=== PATIENT | male | born 2000 | race Caucasian/White ===

== ENCOUNTER 2025-05-02 19:24 | Emergency (ER) | payer BC, SELFPAY ==
[2025-05-02] VITALS (17 sets, daily range): BP systolic 143–177; BP diastolic 88–119; PULSE 75–103; TEMP 37.4; O2SAT 94–100; BMI 48.8
--- NOTE | 2025-05-02 19:44 | CT_ITS ---
The [address] [address] Patient Name: PELON BRONSON MRN: [id number] date: 2000 Sex: M Assigned Patient Location: ER Current Patient Location: ER Accession/Order Number: [id number] Exam Date: 05/02/2025 19:57 Report Date: 05/02/2025 21:14 At the request of: RHONDA CAREY MD Procedure: CT abdomen pelvis w con CT ABDOMEN AND PELVIS WITH INTRAVENOUS CONTRAST: CLINICAL HISTORY: RUQ abd pain COMPARISON: None TECHNIQUE: Spiral images were obtained through the abdomen and pelvis following the administration of intravenous contrast. This CT exam was performed using one or more following dose reduction techniques: Automated exposure control, adjustment of the mA and/or kV according to patient size, or use of iterative reconstruction technique. FINDINGS: Lung Bases: [No focal opacity within the visualized lungs.] Organs:Portions of the liver and spleen excluded from the of the [id number]. Fatty infiltration. Spleen, adrenals, kidneys, pancreas unremarkable. Gallbladder unremarkable.[ GI: Mild retained stool. No bowel obstruction. Appendix is not visualized. There are no CT findings acute appendicitis.[ Pelvis: Bladder prostate unremarkable. Peritoneum/Retroperitoneum:No free air or free fluid. Aorta unremarkable.[ Abd wall/Bones:No suspicious osseous lesion.[ CT/CT abdomen pelvis w con IMPRESSION: Negative acute inflammatory process or bowel obstruction. Fatty infiltration of the liver Impression dictated by: Kyaw Menendez M.D. 05/02/2025 9:14 PM Dictation Location: [employer] Electronically authenticated by: [id number] Y Date: 05/02/2025 21:14
--- NOTE | 2025-05-02 19:45 | ED_ITS ---
HPI - Abdominal Pain General Chief Complaint: Abdominal Pain Stated Complaint: ABDOMINAL PAIN Time Seen by Provider: 05/02/25 19:40 Source: patient Mode of arrival: walk-in Limitations: no limitations History of Present Illness HPI narrative: This 24-year-old male presents for evaluation of right upper quadrant abdominal pain with nausea and vomiting. The symptoms started after eating ribs for lunch earlier today. He states the pain is in the right upper quadrant and wraps around his back. It causes him to be short of breath. He does not drink or smoke. He has had his appendix out in the past. He has not had any diarrhea. He does have a history of kidney stones and a history of hypertension but states he was taken off of his blood pressure medications. He is not on any weight loss medications currently. Related Data Allergies Allergy/AdvReac Type Severity Reaction Status Date / Time amoxicillin AdvReac Intermediate Vomiting Verified 05/02/25 19:32 Review of Systems ROS Status of ROS 10 or more systems reviewed and unremark able except as noted in history and below PFSH PFSH Social History Little interest or pleasure in doing things: not at all Feeling down, depressed, or hopeless: not at all Exam Narrative Exam Narrative: Vital signs and Nursing Notes reviewed: Patient's temperature is elevated 99.3, pulse was elevated at 101, blood pressure is elevated at 175/119, he is not hypoxic with pulse ox of 100% on room air General: Awake, alert, oriented, uncomfortable appearing diaphoretic obese adult male, no respiratory distress, no active vomiting HEENT: Normocephalic atraumatic, mucous membranes are moist and pink, eyes are clear, normal conjunctiva, no scleral icterus, vision is grossly intact Neck: Supple, no meningeal signs, no anterior or posterior cervical lymphad enopathy Chest: Lungs are clear to auscultation with good air entry, there is no wheezing rhonchi or rales appreciated no accessory muscle use, patient is speaking in complete sentences-no chest wall tenderness to palpation CVS: Regular rate and rhythm S1-S2, no murmurs rubs or gallops, pulses are brisk and equal bilaterally ABD: Obese, soft, right upper quadrant and epigastric tenderness to palpation, bowel sounds are normal, no tenderness in the left upper quadrant, left lower quadrant or right lower quadrant. Extremities: Moving all extremities, no lower extremity tenderness or swelling noted, negative Homans' sign, pulses are brisk and equal bilaterally Skin: Flushed, diaphoretic Neuro: No focal deficits Constitutional Vital Signs, click to edit/add: Last Vital Signs Temp 99.3 F 05/02/25 19:29 Pulse 88 05/02/25 22:17 Resp 18 05/02/25 22:17 BP 156/95 H 05/02/25 22:17 Pulse Ox 97 05/02/25 22:17 O2 Del Method Room Air 05/02/25 19:29 Course Vital Signs Vital signs: Vital Signs Temperature 99.3 F 05/02/25 19:29 Pulse Rate 101 H 05/02/25 19:29 Respiratory Rate 20 05/02/25 19:29 Blood Pressure 175/119 H 05/02/25 19:29 Pulse Oximetry 100 05/02/25 19:29 Oxygen Delivery Method Room Air 05/02/25 19:29 Temperature 99.3 F 05/02/25 19:29 Pulse Rate 88 05/02/25 22:17 Respiratory Rate 18 05/02/25 22:17 Blood Pressure 156/95 H 05/02/25 22:17 Pulse Oximetry 97 05/02/25 22:17 Oxygen Delivery Method Room Air 05/02/25 19:29 MDM - Abdominal Pain MDM Narrative Medical decision making narrative: This 24-year-old male with a history of kidney stones and who is status post appendectomy in the past with a history of morbid obesity presents for evaluation of right upper quadrant abdominal pain with nausea and vomiting. Symptoms started after having ribs for lunch. He also stated that the pain radiated up into his chest with some shortness of breath. He does not drink, or smoke and has no lower extremity pain or swelling but is morbidly obese. EKG done on arrival as a sinus rhythm at [address] changes with T wave inversions in lead III and aVF. An IV was placed and he was medicated with IV fluids, Toradol and Zofran. He had minimal relief from this pain and was still diaphoretic and writhing around and was given IV Dilaudid and additional dose of Zofran with clinical improvement. He has a normal white count hemoglobin. Electrolytes are normal with a mild elevation in his creatinine at 1.45. Troponin is normal. D-dimer is elevated at 0.75. Liver function test and lipase are normal. Urine is negative for infection. CT scan of the abdomen pelvis with IV contrast was ordered and reviewed by radiology and does not show any acute findings. The patient has been taken for the CT of the abdomen pelvis prior to his D-dimer resulting. I did discuss repeat testing with radiology. CT of the chest is negative for acute findings. On reevaluation the patient is feeling much better. He is tolerating clear liquids. I explained to him that clinically I suspect he has gallbladder disease and had biliary colic after eating ribs earlier today. He admits that he has had similar symptoms in the past but they have never been this severe. Ultrasound was not available for an ultrasound of the right upper quadrant but I did give him a requisition for an outpatient ultrasound. He will be discharged home with 2 Percocet and a Zofran to use as needed if his pain should recur tonight. I recommended n.p.o. and slow return to a low-fat diet over the course of the next 1 to 2 days. He will be discharged home with a prescription for Percocet and Zofran to use as needed for ongoing pain. He was encouraged return to emergency department for ongoing or worsening symptoms or any concerns. Lab Data Attestation: I reviewed the patient's lab results. Labs: Lab Results 05/02/25 05/02/25 Range/Units 19:41 21:43 WBC 10.5 (4.0-11.0) 10^3/uL RBC 5.25 (4.70-6.10) 10^6/uL Hgb 15.3 (14.0-18.0) g/dL Hct 45.0 (42.0-54.0) % MCV 85.7 (80.0-94.0) fL MCH 29.1 (25.9-34.0) pg MCHC 34.0 (29.9-35.2) g/dL RDW 12.7 (11.0-15.0) % Plt Count 284 (150-450) 10^3/uL MPV 8.7 L (9.5-13.5) fL Seg Neuts % (Manual) 71.0 (43.0-75.0) Lymphocytes % (Manual) 11.0 L (20.5-60.0) % Monocytes % (Manual) 18.0 H (1.7-12.0) % Eosinophils % (Manual) 0.0 L (0.9-7.0) % Basophils % (Manual) 0.0 L (0.2-2.0) % Neutrophils # (Manual) 7.45 H (1.4-6.5) 10^3/uL Lymphocytes # (Manual) 1.15 L (1.20-3.80) 10^3/uL Monocytes # (Manual) 1.89 H (0.30-0.80) 10^3/uL Eosinophils # (Manual) 0.00 (0.00-0.70) 10^3/uL Basophils # (Manual) 0.00 (0.00-0.10) 10^3/uL D-Dimer 0.75 H* (<=0.59) mg/L FEU Sodium 137 (136-145) mmol/L Potassium 4.0 (3.5-5.1) mmol/L Chloride 101 (98-107) mmol/L Carbon Dioxide 24.9 (21.0-32.0) mmol/L Anion Gap 15.1 BUN 15.0 (7.0-18.0) mg/dL Creatinine 1.45 H (0.70-1.30) mg/dL Est GFR ( Amer) >60 (>=60 mL/min/1.73m^2) Est GFR (Non-Af Amer) 59 L (>=60 mL/min/1.73m^2) BUN/Creatinine Ratio 10.3 Glucose 111 H (74-106) mg/dL Calcium 10.0 (8.5-10.1) mg/dL Total Bilirubin 0.6 (0.2-1.0) mg/dL AST 28 (15-37) U/L ALT 75 H (16-63) U/L Alkaline Phosphatase 80 (46-116) U/L Troponin I High Sens <4.0 L (4.0-76.1) pg/mL Total Protein 8.7 H (6.4-8.2) g/dL Albumin 4.3 (3.4-5.0) g/dL Globulin 4.4 g/dL Albumin/Globulin Ratio 1.0 Lipase 24.0 (16.0-77.0) U/L Urine Color Yellow (YELLOW) Urine Clarity Clear (CLEAR) Urine pH 7.5 (5.0-9.0) Ur Specific Corn 1.010 (1.005-1.025) Urine Protein 30 A (NEG/TRACE) mg/dL Urine Glucose (UA) Negative (NEGATIVE) mg/dL Urine Ketones 15 A (NEGATIVE) mg/dL Urine Occult Blood Negative (NEGATIVE) Urine Nitrite Negative (NEGATIVE) Urine Bilirubin Negative (NEGATIVE) Urine Urobilinogen 1.0 (0.2-1.0) EU/dL Ur Leukocyte Esterase Negative (NEGATIVE) Urine RBC 0-2 (0-2) #/HPF Urine WBC 0-2 A (NONE SEEN) #/HPF Ur Squamous Epith Cells Rare (NONE/RARE) #/LPF Urine Crystals None seen (None Seen) #/HPF Urine Bacteria Trace A (NONE SEEN) #/HPF Urine Casts None seen (NONE SEEN) #/LPF Urine Mucus None seen (NONE SEEN) Ur Culture Indicated? No Imaging Data CT scan - abdomen: Radiologist's impression: ITS Impressions Abdomen/Pelvis CT 05/02/25 19:44 IMPRESSION: Negative acute inflammatory process or bowel obstruction. Fatty infiltration of the liver Impression dictated by: Kyaw Menendez M.D. 05/02/2025 9:14 PM Dictation Location: [employer] Electronically authenticated by: [id number] Y Date: 05/02/2025 21:14 Chest CTA 05/02/25 21:03 IMPRESSION: No CT evidence of pulmonary embolism or acute cardiopulmonary process. Impression dictated by: Kyaw Menendez M.D. 05/02/2025 10:35 PM Dictation Location: [employer] Electronically authenticated by: [id number] Y Date: 05/02/2025 22:35 CT scan - chest: Radiologist's impression: ITS Impressions Abdomen/Pelvis CT 05/02/25 19:44 IMPRESSION: Negative acute inflammatory process or bowel obstruction. Fatty infiltration of the liver Impression dictated by: Kyaw Menendez M.D. 05/02/2025 9:14 PM Dictation Location: [employer] Electronically authenticated by: [id number] Y Date: 05/02/2025 21:14 Chest CTA 05/02/25 21:03 IMPRESSION: No CT evidence of pulmonary embolism or acute cardiopulmonary process. Impression dictated by: Kyaw Menendez M.D. 05/02/2025 10:35 PM Dictation Location: [place] [address] Electronically authenticated by: [id number] Y Date: 05/02/2025 22:35 ECG Data Attestation: I personally reviewed and interpreted this ECG as follows: (Sinus rhythm at 95 bpm, T waves are inverted in leads III and aVF leads depressed and V6, normal axis, no acute ST segment elevation) Discharge Plan Discharge Chief Complaint: Abdominal Pain Clinical Impression: Abdominal pain, Biliary colic, Fatty liver Patient Disposition: Home, Self-Care Time of Disposition Decision: 22:57 Condition: Good Print Language: Frisian Instructions: Biliary Colic (ED), Acute Abdominal Pain (DC), Non-Alcoholic Fatty Liver Disease (ED) Additional Instructions: Call to schedule an outpatient ultrasound with central scheduling. Please s chedule this when you have not had anything to eat or drink for 6 to 8 hours. Use pain medications as needed. Follow a low-fat diet. Return to emergency department for worsening symptoms or any concerns Referrals: CHIP MORTENSEN [Primary Care Provider, Family Practice] - 1 week
--- NOTE | 2025-05-02 19:46 | ECG_ITS ---
The [facility] Test Date: 2025-05-02 Pat Name: Constantine Michele Department: Room: - Gender: Male Relations Liaison: : 2000 Requested By: [id number] Order Number: [id number] Reading MD: OPAL RYAN M.D. Measurements Intervals [place] Rate: 95 P: 46 SC: 120 QRS: 48 QRSD: 90 T: -33 QT: 296 QTc: 348 Interpretive Statements 1100 Sinus rhythm [address] depression 4664 Twave abnormality, possible inferior ischemia 8305 Short QTc interval 9150 abnormal ECG No previous ECG available for comparison Electronically Signed On 05-03-2025 7:08:27 EDT by OPAL RYAN M.D.
[2025-05-02 19:52] LABS: Hematocrit 45.0 % (42.0-54.0); Hemoglobin 15.3 g/dL (14.0-18.0); Mean Corpuscular HGB Conc 34.0 g/dL (29.9-35.2); Mean Corpuscular Hemoglobin 29.1 pg (25.9-34.0); Mean Corpuscular Volume 85.7 fL (80.0-94.0); Platelet Count 284 10^3/uL (150-450); Red Blood Count 5.25 10^6/uL (4.70-6.10); White Blood Count 10.5 10^3/uL (4.0-11.0)
[2025-05-02] MEDS: FAMOTIDINE/PF 20 MG/2 ML VIAL IV (20:10)
[2025-05-02] MEDS: 0.9 % SODIUM CHLORIDE 1,000 ML 1000 ML IV ×2 (20:10→22:12)
[2025-05-02] MEDS: KETOROLAC TROMETHAMINE 30 MG/ML VIAL IVP (20:10)
[2025-05-02 20:11] LABS: Alanine Aminotransferase 75 U/L (16-63); Albumin Globulin Ratio 1.0; Albumin Level 4.3 g/dL (3.4-5.0); Alkaline Phosphatase 80 U/L (46-116); Anion Gap 15.1; Aspartate Amino Transferase 28 U/L (15-37); Blood Urea Nitrogen 15.0 mg/dL (7.0-18.0); Calcium 10.0 mg/dL (8.5-10.1); Carbon Dioxide 24.9 mmol/L (21.0-32.0); Chloride 101 mmol/L (98-107); Estimated GFR (African America >60 (>=60 mL/min/1.73m^2); Estimated GFR (Non-African Ame 59 (>=60 mL/min/1.73m^2); Globulin 4.4 g/dL; Glucose 111 mg/dL (74-106); Lipase 24.0 U/L (16.0-77.0); Potassium 4.0 mmol/L (3.5-5.1); Sodium 137 mmol/L (136-145); Total Protein 8.7 g/dL (6.4-8.2)
[2025-05-02 20:12] LABS: Basophils Abs Manual 0.00 10^3/uL (0.00-0.10); Basophils Percent Manual 0.0 % (0.2-2.0); Eosinophils Absolute Manual 0.00 10^3/uL (0.00-0.70); Eosinophils Percent Manual 0.0 % (0.9-7.0); Lymphocytes Absolute Manual 1.15 10^3/uL (1.20-3.80); Lymphocytes Percent Manual 11.0 % (20.5-60.0); Monocytes Absolute Manual 1.89 10^3/uL (0.30-0.80); Monocytes Percent Manual 18.0 % (1.7-12.0); Segmented Neut Absolute Manual 7.45 10^3/uL (1.4-6.5); Segmented Neutrophils % Manual 71.0 (43.0-75.0)
[2025-05-02] MEDS: HYDROMORPHONE HCL 1 MG/ML CARTRIDGE IV (20:27)
--- NOTE | 2025-05-02 21:03 | CT_ITS ---
The [address] [address] Patient Name: PELON BRONSON MRN: [id number] date: 2000 Sex: M Assigned Patient Location: ED.MAIN Current Patient Location: ED.MAIN Accession/Order Number: [id number] Exam Date: 05/02/2025 22:05 Report Date: 05/02/2025 22:35 At the request of: RHONDA CAREY MD Procedure: CT angio chest CT ANGIOGRAM OF THE CHEST, PULMONARY EMBOLISM PROTOCOL: CLINICAL INFORMATION: Elevated d-dimer TECHNIQUE: Following intravenous injection of contrast CT scans of the chest were obtained using pulmonary embolism protocol. Coronal and sagittal reconstructed images, as well as volume rendered CT pulmonary angiographic images were also submitted.The CT exam was performed using one or more of the following dose reduction techniques: Automated exposure control, adjustment of the MA and/or Kv according to patient size, or use of the iterative reconstruction technique. FINDINGS: Pulmonary Vasculature: Contrast bolus is adequate for evaluation of pulmonary embolism. Pulmonary trunk appears nondilated. No filling defects are identified to suggest pulmonary embolism. Mediastinum : Thoracic aorta is normal in caliber. No pericardial effusion. No lymphadenopathy. The esophagus is grossly unremarkable. Lungs: No focal consolidation, pneumothorax or pleural effusion. Upper abdomen: Fatty infiltration liver Soft tissue/bones: Soft tissues surrounding the chest wall demonstrate no acute findings. No suspicious osseous lesion CT/CT angio chest IMPRESSION: No CT evidence of pulmonary embolism or acute cardiopulmonary process. Impression dictated by: Kyaw Menendez M.D. 05/02/2025 10:35 PM Dictation Location: [employer] Electronically authenticated by: [id number] Y Date: 05/02/2025 22:35
[2025-05-02 22:05] LABS: Glucose Urine UA NEGATIVE (NEGATIVE)
[2025-05-02] MEDS: OXYCODONE HCL/ACETAMINOPHEN 5MG/325MG 1 TAB PO (22:12)
[2025-05-02 22:15] LABS: Cast Seen? NONE SEEN #/LPF (NONE SEEN); Crystals Seen? None Seen #/HPF (None Seen)
[2025-05-02 22:16] LABS: Urine Culture Indicated NO
[2025-05-02] MEDS: OXYCODONE HCL/ACETAMINOPHEN 5MG/325MG PO (23:22)
[2025-05-02] MEDS: ONDANSETRON 4 MG RAPDIS TABLET SL (23:22)
== END 2025-05-02 23:30 | disposition home or self-care (01) ==
PROVIDERS: Emergency Provider Emergency Medicine; PCP Family Medicine
DX: R10.13 Epigastric pain (principal); K80.50 Calculus of bile duct without cholangitis or cholecystitis without obstruction; K76.0 Fatty (change of) liver, not elsewhere classified; Z90.49 Acquired absence of other specified parts of digestive tract; Z87.442 Personal history of urinary calculi; I10 Essential (primary) hypertension; E66.01 Morbid (severe) obesity due to excess calories; Z68.42 Body mass index [BMI] 45.0-49.9, adult; R79.89 Other specified abnormal findings of blood chemistry
CPT/HCPCS: 36415; 71275; 74177; 80053; 81001; 83690; 84484; 85007; 85027; 85378; 93005; 96361; 96374; 96375; 99285; J1171; J1885; J2405; J3490; Q0162; Q9967

== ENCOUNTER 2025-07-22 09:02 | Outpatient (OUT) | payer BC, SELFPAY ==
--- NOTE | 2025-07-22 | US_ITS ---
The [address] [address] Patient Name: PELON BRONSON MRN: [id number] date: 2000 Sex: M Assigned Patient Location: US Current Patient Location: US Accession/Order Number: [id number] Exam Date: 07/22/2025 09:08 Report Date: 07/22/2025 14:08 At the request of: RHONDA CAREY MD Procedure: US right upper quadrant EXAMINATION TYPE: US right upper quadrant DATE OF EXAM ORDERED: 07/22/2025 9:41 AM HISTORY: ABDOMEN PAIN COMPARISON: 04/29/2025 TECHNIQUE: Realtime imaging limited to the right upper quadrant was performed. FINDINGS: Stones are present in the gallbladder lumen. Gallbladder wall measures 2.5 mm in thickness. The common bile but measures 4 mm in diameter. No intrahepatic or extrahepatic biliary dilatation is seen. The liver is echogenic in respect to the right renal cortex suggesting hepatic steatosis. Partial visualization of the right kidney reveals no gross hydronephrosis. An echogenic stone is noted in the right renal cortex measuring 5 mm. Partial visualization of the pancreas reveals no abnormality. US/US right upper quadrant IMPRESSION: No sonographic evidence of acute cholecystitis. Gallstones are present. Findings suggest hepatic steatosis. There is a nonobstructing stone in the right renal collecting system without evidence of hydronephrosis. Impression dictated by: Rubén Eubanks M.D. 07/22/2025 2:08 PM Dictation Location: [place] [address] Electronically authenticated by: [id number] Y Date: 07/22/2025 14:08
--- OUTSIDE RECORDS SUMMARY | 2025-07-22 09:06 | XMS_ITS | Encounter Summary ---
Author Organization [facility] Address [address] [facility] [address] Care Team Providers Care Instrumentation Engineering Technician Name Role Phone Placido Busby MD Primary Care Provider + [phone] Reason for Visit * ReasonOnset DateCommentsCare Waynyptomenz71/02/2025 Encounter Details DateTypeDepartmentCare Team (Latest Contact Info)Ldhryhnkojb72/02/2025Telephone [facility] [place] [facility] [address] [place] [address] Placido Busby MD [address] [place] [address] Care Coordination Social History Tobacco UseTypesPacks/DayYears UsedDateSmoking Tobacco: NeverSmokeless Tobacco: NeverAlcohol UseStandard Drinks/WeekCommentsNot Currently0 (1 standard drink = 0.6 oz pure alcohol)PHQ-2AnswerDate RecordedPatient Health Questionnaire-2 Score Sex and Gender InformationValueDate RecordedSex Assigned at BirthNot on fileLegal KvaGvna8910/22/2022 7:08 PM EDTGender IdentityNot on fileSexual OrientationNot on filedocumented as of this encounter Miscellaneous Notes * Telephone Encounter - Jazmine Burton MA - 07/11/2025 1:17 PM EST ERX SENT * Telephone Encounter - Demi De La Torre - 07/11/2025 1:13 PM EST Constantnie called , [facility] will not take his insurance and he needs his meds sent to [facility] in [place] please. documented in this encounter Plan of Treatment DateTypeDepartmentCare Team (Latest Contact Info)Jbnyhldtrzm35/29/2025 4:30 PM ESTOffice Visit [facility] [place] [address] [facility] [address] [place] [address] Placido Busby MD [address] [facility] [address] [place] [address] documented as of this encounter Goals GoalPatient Goal TypeAssociated ProblemsRecent ProgressPatient-Stated?Author Help patient manage antidepressant medication Care PlanPatient on antidepressant monitoring planNoNovember, MAdocumented as of this encounter Visit Diagnoses Diagnosis Moderate episode of recurrent major depressive disorder (HCC) Essential hypertension Unspecified essential hypertension documented in this encounter Additional Health Concerns Active ProblemsNoted DateDiagnosed DatePatient on antidepressant monitoring plan 5AssessmentNoted TimePHQ-9 Depression Total Score: 17010/13/2024 3:25 PM ESTdocumented as of this encounter Care Teams Team MemberRelationshipSpecialtyStart DateEnd Date Placido Busby MD [address] [address] PCP - GeneralFamily Medicine12/16/22documented as of this encounter
--- OUTSIDE RECORDS SUMMARY | 2025-07-22 09:06 | XMS_ITS | Clinical Summary ---
Author Organization [facility] Healthcare Address [address] [place] [address] Care Team Providers Care [employer] Supervisor Name Role Phone Placido Busby MD Primary Care Provider + [phone] Allergies Active AllergyReactionsCriticalityNoted JohkSremkiggFplbzvpeahh85/25/2023 Other Reaction(s): Vomiting Bee Venom06/03/2023 Other Reaction(s): hives LyxeyCaukBff26/25/2825Cnlrvxuk26/25/2023 Other Reaction(s): bad dreams Penicillin G1 Other Reaction(s): vomiting Medications MedicationSigDispense QuantityRefillsLast FilledStart DateEnd DateStatus DULoxetine (Cymbalta) [address] capsule Indications:Moderate episode of recurrent major depressive disorder (HCC)Take 2 capsules (40 mg) by mouth Daily Do not crush or chew. 60 capsule ctive losartan (Cozaar) 100 MG tablet Indications:Essential hypertensionTake 1 tablet (100 mg) by mouth Daily 30 tablet ctive DULoxetine (Cymbalta) [address] capsule Indications:Moderate episode of recurrent major depressive disorder (HCC)Take 2 capsules (40 mg) by mouth Daily Do not crush or chew. 60 capsule Discontinued(Reorder) losartan (Cozaar) 100 MG tablet Indications:Essential hypertensionTake 1 tablet (100 mg) by mouth Daily 30 tablet Discontinued(Reorder) DULoxetine (Cymbalta) [address] capsule Indications:Moderate episode of recurrent major depressive disorder (HCC)Take 2 capsules (40 mg) by mouth Daily Do not crush or chew. 60 capsule Discontinued(Reorder) losartan (Cozaar) 100 MG tablet Indications:Essential hypertensionTake 1 tablet (100 mg) by mouth Daily 30 tablet Discontinued(Reorder) Active Problems ProblemNoted DateDiagnosed DateBMI 45.0-49.9, adult02/08/2025Moderate episode of recurrent major depressive zgowwayp95/30/2025hronic jocugqr4106/03/2023PAP (continuous positive airway pressure) /25/2023Essential hypertension 06/03/2023astroesophageal reflux wfhsgxd2506/03/2023Morbid vojzizb4006/03/2023 Nocturnal hroqwpqzp58/25/2023Non-seasonal allergic gkovxxgq10/25/2023OSA (obstructive sleep apnea)06/03/2023 Resolved Problems ProblemNoted DateDiagnosed DateResolved DateMajor depressive disorder, single episode, ljryjahm81/01/2025 Encounters DateTypeDepartmentCare ZeztJjczrprraxy98/02/2025Telephone [facility] [address] [address] Placido Busby MD Care Wgazylzthjrg24/01/2025Orders Only [address] [address] Jazmine Burton, MARK ANTHONY Moderate episode of recurrent major depressive disorder (HCC); Essential ttkajqnzqgpr07/20/2025Refill [facility] [place] [address] [place] [address] Placido Busby MD Moderate episode of recurrent major depressive disorder (HCC)05/03/2025Telephone [facility] [place] [address] Bre Rojas RN ER Follow-up ([facility] ER 05/02/2025, Abdominal Pain.)from Last 3 Months Immunizations ImmunizationAdministration DatesNext FhiCQrB3003/25/2005,07/20/2002DTaP, Lucoealvhmv65/09/2000,1999,1999Hep B, Adolescent or Pediatric 07/20/2002,07/18/2000,06/24/2000,05/18/2000HiB, csuffteqhue04/03/2001,03/18/2000 ,1999,1999IPV03/25/2005,07/21/2002Influenza Whole07/14/2012MMR 03/25/2005,11/10/2000Meningococcal THG1M9401/12/2012Pneumococcal Conjugate PCV 7 11/09/2000,05/18/2000,01/15/2000Polio, Stypfflmvtm33/10/2000,1999Tdap 01/12/20123801Wpaoehylc43/17/2001 Family History Medical HistoryRelationNameCommentsDepressionFatherDiabetesFatherIrritable bowel syndromeFatherSleep apneaFatherDiabetesFather's BrotherHeart diseaseMaternal GrandfatherHypertensionMaternal GrandfatherHypertensionMaternal Grandmother DiabetesPaternal GrandfatherHypertensionPaternal GrandfatherSleep apneaPaternal GrandfatherCancerPaternal GrandmotherDiabetesPaternal GrandmotherHypertension Paternal GrandmotherRelationNameStatusCommentsFatherAliveFather's Brother Maternal GrandfatherMaternal GrandmotherMotherAlivePaternal GrandfatherPaternal Grandmother Social History Tobacco UseTypesPacks/DayYears UsedDateSmoking Tobacco: NeverSmokeless Tobacco: Never Tobacco Cessation:Counseling Given: Yes Alcohol UseStandard Drinks/WeekCommentsNot Currently0 (1 standard drink = 0.6 oz pure alcohol)PHQ-2AnswerDate RecordedPatient Health Questionnaire-2 Score0 02/08/2025Sex and Gender InformationValueDate RecordedSex Assigned at BirthNot on fileLegal LohTdug5310/22/2022 7:08 PM EDTGender IdentityNot on fileSexual OrientationNot on file Last Filed Vital Signs Vital SignReadingTime TakenCommentsBlood Owzqxpuz231/8207 3:21 PM EDT Tidof58036/02/2025 3:21 PM EDTTemperature--Respiratory Rate--Oxygen Saturation 96%02/08/2025 3:21 PM EDTInhaled Oxygen Concentration--Xbgyze944 kg (327 lb) 02/08/2025 3:21 PM NQQSvxxzd037.8 cm (5' 10 )02/08/2025 3:21 PM EDTBody Mass Index46.9202/08/2025 3:21 PM EDT Plan of Treatment DateTypeDepartmentCare Team (Latest Contact Info)Zcvwuaobule87/29/2025 4:30 PM ESTOffice Visit [facility] [place] Medicine [address] [place] [phone] Placido Busby MD 112 [facility] [address] [place] [address] Health MaintenanceDue DateLast DoneCommentsCOVID-19 Vaccine ( season) 507/03/2021, 01/26/2021Influenza Vaccine (#1)/12/2011 Postponed from 04/10/2025 (Patient Refused)Pneumococcal Vaccine: Pediatrics (0 to 5 Years) and At-Risk Patients (6 to 64 Years)Aged Out11/09/2000, 05/18/2000, 01/15/2000No longer eligible based on patient's age to complete this topic Goals GoalPatient Goal TypeAssociated ProblemsRecent ProgressPatient-Stated?Author Help patient manage antidepressant medication Care PlanPatient on antidepressant monitoring planFiordaliza, November, MARK ANTHONY Additional Health Concerns Active ProblemsNoted DateDiagnosed DatePatient on antidepressant monitoring plan 07/10/2025 Insurance Care Teams Team MemberRelationshipSpecialtyStart DateEnd Date Placido Busby MD [address] [address] [facility]
--- OUTSIDE RECORDS SUMMARY | 2025-07-22 09:06 | XMS_ITS | Encounter Summary ---
Author Organization [facility] Address [address] [facility] [place] [address] Care Team Providers Care Derrick Boat Runner Name Role Phone Placido Busby MD Primary Care Provider [phone] Encounter Details DateTypeDepartmentCare Team (Latest Contact Info)Zvnojinmnhe99/01/2025Orders Only [facility] [place] [facility] 112 [facility] [address] [place] [phone] Jazmine Burton, MARK ANTHONY Moderate episode of recurrent major depressive disorder (HCC); Essential hypertension Social History Tobacco UseTypesPacks/DayYears UsedDateSmoking Tobacco: NeverSmokeless Tobacco: NeverAlcohol UseStandard Drinks/WeekCommentsNot Currently0 (1 standard drink = 0.6 oz pure alcohol)PHQ-2AnswerDate RecordedPatient Health Questionnaire-2 Score Sex and Gender InformationValueDate RecordedSex Assigned at BirthNot on fileLegal LqzWiwi9710/22/2022 7:08 PM EDTGender IdentityNot on fileSexual OrientationNot on filedocumented as of this encounter Plan of Treatment DateTypeDepartmentCare Team (Latest Contact Info)Svpipzryxba03/29/2025 4:30 PM ESTOffice Visit [facility] [place] [facility] Family Medicine 112 [facility] [address] [place] [phone] Placido Busby MD 112 [facility] [address] [place] [address] (Fax) documented as of this encounter Goals GoalPatient Goal TypeAssociated ProblemsRecent ProgressPatient-Stated?Author Help patient manage antidepressant medication Care PlanPatient on antidepressant monitoring planNoNovember, MAdocumented as of this encounter Visit Diagnoses Diagnosis Moderate episode of recurrent major depressive disorder (HCC) Essential hypertension Unspecified essential hypertension documented in this encounter Additional Health Concerns Active ProblemsNoted DateDiagnosed DatePatient on antidepressant monitoring plan 07/10/2025ssessmentNoted TimePHQ-9 Depression Total Score: 3:25 PM ESTdocumented as of this encounter Care Teams Team MemberRelationshipSpecialtyStart DateEnd Date Placido Busby MD [address] [address] PCP - GeneralFamily Medicine12/16/22documented as of this encounter
== END 2025-07-22 09:03 | disposition home or self-care (01) ==
LOC: US 09:03
PROVIDERS: PCP Family Medicine; Visit Provider Emergency Medicine
DX: R10.11 Right upper quadrant pain (principal); N20.0 Calculus of kidney
CPT/HCPCS: 76705